=== PATIENT | female | born 1990 | race Caucasian/White ===

== ENCOUNTER 2021-11-03 08:00 | Outpatient (CLI) | payer BC ==
[2021-11-03 17:29] LABS: BILIRUBIN,URINE NEGATIVE (NEGATIVE); GLUCOSE, URINE (UA) NEGATIVE (NEGATIVE); KETONES,URINE (UA) NEGATIVE (NEGATIVE); LEUKOCYTE ESTERASE, URINE NEGATIVE (NEGATIVE); NITRITE,URINE NEGATIVE (NEGATIVE); OCCULT BLOOD,URINE SMALL (NEGATIVE); PH,URINE 5.5 PH (5.0-7.5); PROTEIN,URINE NEGATIVE (NEGATIVE); UROBILINOGEN,URINE 0.2 (NORMAL) E.U./dL (NORMAL)
[2021-11-03 17:47] LABS: AMORPHOUS SEDIMENT,UR Marked /LPF; BACTERIA,URINE None Seen /HPF (None Seen); CLARITY,URINE CLOUDY (CLEAR); RBC,URINE None Seen /HPF (0-5); SQUAMOUS EPITHELIAL CELL,UR RARE Squamous (<= Few); WBC,URINE 0-3 /HPF (0-5)
== END 2021-11-03 23:59 | disposition home or self-care (01) ==
LOC: LAB.R 08:00
PROVIDERS: ATTEND Obstetrics & Gynecology
DX: Z32.01 Encounter for pregnancy test, result positive (principal)
CPT/HCPCS: 81001; 87086

== ENCOUNTER 2021-11-16 15:02 | Outpatient (CLI) | payer BC ==
--- NOTE | 2021-11-16 16:58 | Ultrasound Report ---
PROCEDURE: OB First Trimester w/TV INDICATIONS: POSITIVE TEST OUTSIDE/PRIOR DATING DATA: Last menstrual period (LMP): 09/03/2021 LMP-based estimated date of delivery (CORBIN): 06/10/2022. First dating scan (date and location): 11/16/2021. Estimated date of delivery (CORBIN) from first dating scan: 06/16/2022. TECHNIQUE: Real-time scanning was performed of the fetus and maternal pelvic organs, with image documentation. Endovaginal scanning was also performed to better visualize the fetus and maternal ovaries. COMPARISON: None FINDINGS: A single living intrauterine gestation is present with a crown-rump length of 29 mm, corresponding to a 9 week 5 day gestation. heart rate is 164 bpm. Small subchorionic hemorrhage measuring 6 mm. Left ovary is not well seen. Right ovary is grossly unremarkable. There is an anechoic rounded focus at the right aspect of the uterus, measuring roughly 18 mm. Measurement variability in dating: +/- 4 weeks by LMP, +/- 7 days by mean sac diameter (use before 6 weeks gestation if crown-rump length not able to be measured), +/- 5 days by crown-rump length (6-12 weeks gestation). IMPRESSION: 1. Single living intrauterine gestation. 2. Possible right ovarian cyst. Recommend attention to this region on follow-up imaging studies. Reviewed by: Nikole Stein MD on 11/16/2021 4:57 PM PDT Approved by: Nikole Stein MD on 11/16/2021 4:57 PM PDT Station ID: [id number]
== END 2021-11-16 15:03 | disposition home or self-care (01) ==
LOC: DI 15:02
PROVIDERS: ATTEND Obstetrics & Gynecology
DX: Z32.01 Encounter for pregnancy test, result positive (principal); Z36.89 Encounter for other specified antenatal screening
CPT/HCPCS: 36415; 85025; 86592; 86762; 86787; 86803; 86850; 86900; 86901; 87340; 87389

== ENCOUNTER 2021-11-16 16:18 | Outpatient (CLI) | payer BC ==
[2021-11-16 16:44] LABS: BASOPHILS % (AUTO) 0.3 %; EOSINOPHILS # (AUTO) 0.2 10^3/uL (0.0-0.7); EOSINOPHILS % (AUTO) 2.1 %; HCT - HEMATOCRIT 38.8 % (37.0-47.0); HGB - HEMOGLOBIN 13.4 g/dL (12.0-16.0); LYMPHOCYTES # (AUTO) 2.9 10^3/uL (1.5-3.5); LYMPHOCYTES % (AUTO) 30.7 %; MEAN CORPUSCULAR HEMOGLOBIN 29.4 pg (27.0-31.0); MEAN CORPUSCULAR HGB CONC 34.5 g/dL (32.0-36.0); MEAN CORPUSCULAR VOLUME 85.1 fL (81.0-99.0); MEAN PLATELET VOLUME 10.4 fL (7.9-10.8); MONOCYTES # (AUTO) 0.6 10^3/uL (0.0-1.0); NEUTROPHILS # (AUTO) 5.7 10^3/uL (1.5-6.6); NEUTROPHILS % (AUTO) 60.8 %; PLT - PLATELET COUNT 194 10^3/uL (130-450); RED BLOOD COUNT 4.56 10^6/uL (4.20-5.40); RED CELL DISTRIBUTION WIDTH 13.1 % (12.0-15.0); WHITE BLOOD COUNT 9.3 x10^3/uL (4.8-10.8)
[2021-11-17 03:10] LABS: HBsAG SCREEN Negative (Negative)
[2021-11-17 05:10] LABS: HCV AB <0.1 s/co ratio (0.0-0.9)
[2021-11-17 06:09] LABS: RPR Non Reactive (Non Reactive)
[2021-11-17 08:10] LABS: VARICELLA-ZOSTER AB IGG 1654 index (Immune >165)
[2021-11-18 00:08] LABS: HIV SCREEN 4TH GENERATION Non Reactive (Non Reactive)
== END 2021-11-16 16:19 | disposition home or self-care (01) ==
LOC: LAB 16:18
PROVIDERS: ATTEND Obstetrics & Gynecology
DX: Z36.89 Encounter for other specified antenatal screening (principal)
CPT/HCPCS: 36415; 85025; 86592; 86762; 86787; 86803; 86850; 86900; 86901; 87340; 87389

== ENCOUNTER 2022-02-07 15:27 | Outpatient (CLI) | payer BC ==
--- NOTE | 2022-02-08 20:59 | Ultrasound Report ---
PROCEDURE: OB Detailed Eval INDICATIONS: SUPERVISION OF OUTSIDE/PRIOR DATING DATA: Last menstrual period (LMP): 09/03/2021. LMP-based estimated date of delivery (CORBIN): 06/10/2022. First dating scan (date and location): 11/16/2021. Estimated date of delivery (CORBIN) from first dating scan: 06/16/2022. The below data below was generated using the working CORBIN of 06/16/2022 TECHNIQUE: Real-time scanning was performed of the fetus, with image documentation and biometric measurements. Endovaginal scannin indicated COMPARISON: 11/16/2021 FINDINGS: General: A single living intrauterine gestation is present. Presentation: Breech Placenta: Placental position is posterior fundal, without previa. Amniotic fluid index: 15.8 cm, normal for gestational age. heart rate: 130 beats per minute. Maternal cervical canal: 3.04 cm long; normal length is 2.5 cm or more. biometrics: Biparietal diameter: 5.01 cm, 21 weeks, 1 day. Head circumference: 19.17 cm, 21 weeks, 3 days. Abdominal circumference: 16.67 cm, 21 weeks, 5 days. Femur length: 3.3 cm, 20 weeks, 3 days. Estimated gestational age from initial scan: 21 weeks, 4 days. Composite gestational age from present scan: 21 weeks, 1 day. Estimated weight and percentile: 401.9 g, 23.5%. Measurement variability in biometric dating: +/- 10 days from 12-20 weeks gestation, +/- 2 weeks from 20-30 weeks gestation, +/- 3 weeks at 30 weeks gestation or later. Anatomic survey: Neuro: Ventricles are normal at less than 10 mm. Cisterna magna is normal at 3-11 mm. Cerebellum i s normal in size and morphology. Nuchal skin fold: Normal at less than 6 mm between 14 and 20 weeks gestational age. Face: Nose and lips, facial profile are normal. Spine: No evidence for spina bifida. Heart: 4-chambered heart is present, with normal ventricular outflow tracts. Diaphragm: Diaphragm is intact. Stomach: Left-sided stomach is present. Kidneys: No hydronephrosis. Normal is less than 5 mm in 2nd trimester, less than 7 mm in 3rd trimester. Cord: 3 vessel cord has orthotopic insertion. Bladder: Normal in size. Extremities: All 4 extremities are visualized. 1.7 x 1.5 x 1.7 cm cystic structure is seen in right adnexa adjacent to right ovary.. IMPRESSION: 1. Single live intrauterine gestation with fetus in breech presentation. heart rate is 130 bpm. Placenta placenta is posterior, no placenta previa. Normal amount of amniotic fluid. Normal gr owth. Estimated weight is at 23.5%. 2. Normal anatomic survey. 3. Possible right paraovarian cyst as above. Reviewed by: Aron Montoya MD on 02/08/2022 8:58 PM PST Approved by: Aron Montoya MD on 02/08/2022 8:58 PM PST Station ID: [id number]
== END 2022-02-07 15:28 | disposition home or self-care (01) ==
LOC: DI 15:27
PROVIDERS: ATTEND Obstetrics & Gynecology
DX: O32.1XX0 Maternal care for breech presentation, not applicable or unspecified (principal); Z3A.21 21 weeks gestation of pregnancy

== ENCOUNTER 2022-03-17 14:46 | Outpatient (CLI) | payer BC ==
[2022-03-17 16:12] LABS: HGB - HEMOGLOBIN 11.4 g/dL (12.0-16.0); MEAN CORPUSCULAR HEMOGLOBIN 30.6 pg (27.0-31.0); MEAN CORPUSCULAR HGB CONC 33.5 g/dL (32.0-36.0); MEAN CORPUSCULAR VOLUME 91.2 fL (81.0-99.0); MEAN PLATELET VOLUME 10.3 fL (7.9-10.8); RED BLOOD COUNT 3.73 10^6/uL (4.20-5.40); RED CELL DISTRIBUTION WIDTH 12.9 % (12.0-15.0); WHITE BLOOD COUNT 5.6 x10^3/uL (4.8-10.8)
== END 2022-03-17 14:47 | disposition home or self-care (01) ==
LOC: LAB 14:46
PROVIDERS: ATTEND Obstetrics & Gynecology
DX: Z36.89 Encounter for other specified antenatal screening (principal)
CPT/HCPCS: 36415; 82950; 85027

== ENCOUNTER 2022-03-18 10:41 | Outpatient (CLI) | payer BC ==
[2022-03-18 10:53] VITALS: BP 114/65
--- NOTE | 2022-03-18 17:39 | PROCEDURE REPORT ---
- HPI Diagnosis/Indication for NST: Intrauterine growth restriction Current EDU 06/10/22 Gestation 28 Weeks and 0 Days 3 Para 2 Vital Signs Temperature 98.1 F 03/18/22 10:52 Heart Rate 82 03/18/22 10:52 Respiratory Rate 16 03/18/22 10:52 Blood Pressure 114/65 03/18/22 10:52 Temperature 98.1 F 03/18/22 10:54 Heart Rate 82 03/18/22 10:52 Respiratory Rate 16 03/18/22 10:52 Blood Pressure 114/65 03/18/22 10:52 O2 Saturation If not protocol: Oxygen Flow, liters/minute - NST Procedure NST Procedure Start Date 03/18/22 Start Time 10:50 Stop Time 11:20 Vibroacoustic Stimulation Used No Patient States Movement Yes EFM: 130s, moderate variability, positive 10x10 accelerations, no decelerations [place]: no contractions NST reactive/Cat 1 Performed and read 03/18/22 - Results and Plan Findings/Impression: 31yo at 28 sent to [facility] for NST due to concern of IUGR. - Fundal height measuring small in office today. History of IUGR with prior pregnancies. - NST reactive today for gestational age - Growth US scheduled for 2d - Follow up US and appts in office
== END 2022-03-18 11:30 | disposition home or self-care (01) ==
LOC: WFO 10:41 → FBP 10:42 → WFO 11:30
PROVIDERS: ATTEND Obstetrics & Gynecology
DX: Z34.93 Encounter for supervision of normal pregnancy, unspecified, third trimester (principal); Z87.59 Personal history of other complications of pregnancy, childbirth and the puerperium
CPT/HCPCS: 59025

== ENCOUNTER 2022-03-21 10:53 | Outpatient (CLI) | payer BC ==
--- NOTE | 2022-03-21 15:38 | Ultrasound Report ---
PROCEDURE: OB F/U or Repeat INDICATIONS: SMALL FOR DATE OUTSIDE/PRIOR DATING DATA: Last menstrual period (LMP): 70. LMP-based estimated date of delivery (CORBIN): 06/10/2022. First dating scan (date and location): 11/16/2021. Estimated date of delivery (CORBIN) from first dating scan: 06/16/2022. The below data below was generated using the ultrasound CORBIN of 06/16/2022 TECHNIQUE: Real-time scanning was performed of the fetus, with image documentation and biometric measurements. COMPARISON: OB ultrasound 02/07/2022 FINDINGS: General: A single living intrauterine gestation is present. Presentation: Vertex Placenta: Placental position is fundal, without previa. Amniotic fluid index: 15.0 cm, 58th percentile for gestational age. heart rate: 143 beats per minute. Maternal cervical canal: 3.4 cm long; normal length is 2.5 cm or more. biometrics: Biparietal diameter: 6.9 cm 27 weeks 5 days Head circumference: 26.0 cm 28 weeks 2 days Abdominal circumference: 22.5 cm 26 weeks 6 days Femur length: 4.8 cm 25 weeks 6 days Estimated gestational age from initial scan: 27 weeks 4 days Composite gestational age from present scan: 27 weeks 1 day Estimated weight and percentile: 975 g 13th percentile Measurement variability in biometric dating: +/- 10 days from 12-20 weeks gestation, +/- 2 weeks from 20-30 weeks gestation, +/- 3 weeks at 30 weeks gestation or more. Other: Previous adnexal cyst is no longer visualized IMPRESSION: Single live intrauterine with ultrasound gestational age of 27 weeks 1 day. Estimated weight is at the 13th percentile. Close interval imaging follow-up is recommended as developing intrauterine growth restriction cannot be excluded. Reviewed by: Margret Villanueva MD on 03/21/2022 3:36 PM PST Approved by: Margret Villanueva MD on 03/21/2022 3:36 PM PST Station ID: [id number]
== END 2022-03-21 10:54 | disposition home or self-care (01) ==
LOC: DI 10:53
PROVIDERS: ATTEND Obstetrics & Gynecology
DX: O26.843 Uterine size-date discrepancy, third trimester (principal); Z3A.00 Weeks of gestation of pregnancy not specified